=== PATIENT | male | born 1955 | race Caucasian/White ===

== ENCOUNTER 2018-12-21 07:48 | Emergency (ER) | payer OTHER ==
[~2018-12-21] VITALS: Ht 182.9 cm; Wt 105.7 kg
[~2018-12-21 07:48] MED LIST: ASPI81CH; CHOL10002; FENO54; LISI5; METO50ER; ROSU10TA; Super B Comple150 MG; TADA10TA
== END 2018-12-21 10:05 | disposition home or self-care (01) ==
LOC: ER 07:48
DX: M25.562 Pain in left knee (principal); Z95.5 Presence of coronary angioplasty implant and graft; Z87.891 Personal history of nicotine dependence
CPT/HCPCS: 20610; 99283-25; J1030

== ENCOUNTER → 2019-03-02 | Outpatient (CLI) | payer OTHER | END | disposition home or self-care (01) | LOC: PLD 08:23 → LAB SHORT 08:23 | DX: D48.5 Neoplasm of uncertain behavior of skin (principal) | CPT/HCPCS: 88305 ==